=== PATIENT | female | born 1970 | race American Indian/Alaskan Native ===

== ENCOUNTER 2017-02-27 03:27 | Emergency (ER) | payer BC ==
[2017-02-27] MEDS ORDERED: XYLOCAINE 1%/ EPI 1:100,000 INFILTRATI ONE (04:35)
[2017-02-27] MEDS ORDERED: BOOSTRIX IM ONE ×2 (04:36→06:38)
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
[2017-02-27] MEDS ORDERED: NACL 0.9% 500 ML IR ONE (05:31)
[2017-02-27 06:27] VITALS: BP 148/97
== END 2017-02-27 06:40 | disposition home or self-care (01) ==
LOC: ED 03:27
DX: S61.512A Laceration without foreign body of left wrist, initial encounter (principal); F10.920 Alcohol use, unspecified with intoxication, uncomplicated; I10 Essential (primary) hypertension; F32.9 Major depressive disorder, single episode, unspecified; D64.9 Anemia, unspecified; W26.8XXA Contact with other sharp object(s), not elsewhere classified, initial encounter; Y93.89 Activity, other specified; Y92.89 Other specified places as the place of occurrence of the external cause; Y99.8 Other external cause status
CPT/HCPCS: 90471; 90715